=== PATIENT | female | born 1995 | race Caucasian/White ===

== ENCOUNTER 2017-07-03 23:38 | Emergency (ER) | payer BC ==
[~2017-07-03] VITALS: Ht 167.6 cm; Wt 59.2 kg
[~2017-07-03 23:38] MED LIST: ALBUTEROL SULF8.5 GM IH; ATARAX,VISTARIL25 MG PO; ATARAX10 MG PO; BENADRYL25 MG PO; BENADRYL50 MG PO; BUSPAR15 MG PO; BUSPAR7.5 MG PO; BUSPIRONE HCL15 MG PO; DIVALPROEX SOD250 MG PO; ESCITALOPRAM OX10 MG PO; LATUDA20 MG PO; LATUDA40 MG PO; MOTRIN600 MG PO; PEPCID20 MG PO; PREDNISONE50 MG PO; SEROQUEL50 MG PO; STRATTERA25 MG PO
[2017-07-04] MEDS ORDERED: SEROQUEL XR400 MG PO (00:49)
[2017-07-04] MEDS ORDERED: BUSPAR10 MG PO (00:50)
[2017-07-04 01:11] LABS: HEMATOCRIT 41.9 % (36.0-46.0); MCH 27.8 PG (29.0-34.0); MCHC 33.4 G/DL (30.0-36.0); MCV 83.3 FL (83-99); MEAN PLAT.VOLUME 9.9 uM^3 (9.5-12.4); PLATELET COUNT 239 K/uL (156-360); RBC DIS.WIDTH-SD 39.5 % (39-53); RED BLOOD COUNT 5.03 M/uL (3.80-5.20); WHITE BLOOD COUNT 7.6 K/uL (4.1-10.2)
[2017-07-04 01:28] LABS: CHLORIDE 113 mEq/L (99-109); POTASSIUM 3.5 mEq/L (3.7-5.4); SODIUM 143 mEq/L (136-147)
[2017-07-04 01:30] LABS: GLUCOSE 86 mg/dL (70-99)
[2017-07-04 01:31] LABS: ANION GAP 11 MEQ/L (2-14)
[2017-07-04 01:33] LABS: SERUM ETHYL ALCOHOL 166 mg/dL
[2017-07-04 01:34] LABS: GFR ESTIMATE (CALCULATED) > 59 mL/min/
[2017-07-04 01:35] LABS: UREA NITROGEN (BUN) 8 mg/dL (9-23)
[2017-07-04 01:42] LABS: QUANTITATIVE HCG < 4.0 MIU/ML
[2017-07-04 02:27] LABS: AMPHETAMINE NEGATIVE (500 ng/mL); BARBITURATES NEGATIVE (200 ng/mL); BENZODIAZEPINES NEGATIVE (150 ng/mL); COCAINE NEGATIVE (150 ng/mL); INTERNAL CONTROLS VALID? YES; METHADONE NEGATIVE (200 ng/mL); METHAMPHETAMINE NEGATIVE (500 ng/mL); OPIATES (MORPHINE) NEGATIVE (100 ng/mL); OXYCODONE NEGATIVE (100 ng/mL); PHENCYCLIDINE NEGATIVE (25 ng/mL); PROPOXYPHENE NEGATIVE (300 ng/mL); THC CANNABINOIDS NEGATIVE (50 ng/mL); TRICYCLIC ANTIDEPRESSANTS PRESUMPTIVE POSITIVE (300 ng/mL)
[2017-07-04 04:45] VITALS: BP 98/62
== END 2017-07-04 04:53 | disposition home or self-care (01) ==
LOC: EME → EDBD 23:38 → EME 23:38
PROVIDERS: Emergency Medicine
DX: F10.129 Alcohol abuse with intoxication, unspecified (principal); Y90.6 Blood alcohol level of 120-199 mg/100 ml; J45.909 Unspecified asthma, uncomplicated
CPT/HCPCS: 80048; 84702; 85027; 90839; 99281; 99285; G0480; J1630; J2060

== ENCOUNTER 2017-11-17 03:10 | Inpatient (IN) | payer BC ==
[~2017-11-17] VITALS: Ht 160 cm; Wt 59.9 kg
[~2017-11-17 03:10] MED LIST changes: +BUSPAR10 MG PO; +SEROQUEL XR400 MG PO
[2017-11-17 05:00] LABS: BASOPHIL (%) 0.8 % (0-1); BASOPHIL COUNT 0.1 K/uL (0-0.1); EOSINOPHIL (%) 1.6 % (0-5); EOSINOPHIL COUNT 0.1 K/uL (0-0.3); HEMATOCRIT 41.5 % (36.0-46.0); HEMOGLOBIN 14.3 G/DL (11.9-15.5); IMMATURE GRANULOCYTE (%) 0.8 % (0.0-0.7); LYMPHOCYTE (%) 29.2 % (15-42); LYMPHOCYTE COUNT 2.4 K/uL (1.0-2.8); MCH 29.4 PG (29.0-34.0); MCHC 34.5 G/DL (30.0-36.0); MCV 85.2 FL (83-99); MONOCYTE (%) 4.5 % (3-12); MONOCYTE COUNT 0.4 K/uL (0-0.8); NEUTROPHIL (%) 63.1 % (45-76); NEUTROPHIL COUNT 5.2 K/uL (1.8-6.4); PLATELET COUNT 245 K/uL (156-360); RBC DIS.WIDTH-CV 12.1 % (11.8-14.6); RBC DIS.WIDTH-SD 37.4 % (39-53); RED BLOOD COUNT 4.87 M/uL (3.80-5.20); WHITE BLOOD COUNT 8.2 K/uL (4.1-10.2)
[2017-11-17 05:22] LABS: CHLORIDE 110 mEq/L (99-109); POTASSIUM 3.4 mEq/L (3.7-5.4); SODIUM 143 mEq/L (136-147)
[2017-11-17 05:24] LABS: GLUCOSE 88 mg/dL (70-99)
[2017-11-17 05:27] LABS: SERUM ETHYL ALCOHOL 119 mg/dL
[2017-11-17 05:28] LABS: CREATININE 0.7 mg/dL (0.6-1.3); GFR ESTIMATE (CALCULATED) > 59 mL/min/
[2017-11-17 05:29] LABS: UREA NITROGEN (BUN) 12 mg/dL (9-23)
[2017-11-17 09:00] LABS: QUANTITATIVE HCG < 4.0 MIU/ML
[2017-11-17 12:45] LABS: AMPHETAMINE NEGATIVE (500 ng/mL); BARBITURATES NEGATIVE (200 ng/mL); BENZODIAZEPINES PRESUMPTIVE POSITIVE (150 ng/mL); BUPRENORPHINE NEGATIVE (10 ng/mL); COCAINE PRESUMPTIVE POSITIVE (150 ng/mL); METHADONE NEGATIVE (200 ng/mL); METHAMPHETAMINE NEGATIVE (500 ng/mL); OPIATES (MORPHINE) NEGATIVE (100 ng/mL); OXYCODONE NEGATIVE (100 ng/mL); PHENCYCLIDINE NEGATIVE (25 ng/mL); PROPOXYPHENE NEGATIVE (300 ng/mL); THC CANNABINOIDS NEGATIVE (50 ng/mL); TRICYCLIC ANTIDEPRESSANTS PRESUMPTIVE POSITIVE (300 ng/mL)
[2017-11-17 14:10] VITALS: BP 124/79
[2017-11-17 15:12] LABS: BENZODIAZEPINES, URINE SCREEN Negative (200 ng/mL)
[2017-11-18 07:07] VITALS: BP 108/67
[2017-11-18 15:27] VITALS: BP 109/68
[2017-11-19 07:38] VITALS: BP 114/60
[2017-11-19 15:14] VITALS: BP 108/73
[2017-11-20 07:33] VITALS: BP 112/66
[2017-11-20 15:16] VITALS: BP 119/78
[2017-11-21 01:10] VITALS: BP 96/50
[2017-11-21 07:33] VITALS: BP 114/65
[2017-11-21] MEDS ORDERED: METHYLPHENIDATE5 MG PO (09:21)
[2017-11-21] MEDS ORDERED: VENTOLIN HFA18 GM IH (09:21)
[2017-11-21] MEDS ORDERED: BUSPAR10 MG PO (09:21)
[2017-11-21] MEDS ORDERED: SEROQUEL XR400 MG PO (09:21)
[2017-11-21] MEDS ORDERED: PRAZOSIN HCL1 MG PO (09:21)
== END 2017-11-21 14:39 | disposition home or self-care (01) | DRG 885 ==
LOC: EME → EDBD 03:10 → EME 03:10 → EDOF 13:29 → 1WEST 13:29 → EDOF 13:49 → ENRESERV 13:58 → 1WEST 13:59
PROVIDERS: Emergency Medicine
DX: F33.1 Major depressive disorder, recurrent, moderate (principal); R45.851 Suicidal ideations; F10.229 Alcohol dependence with intoxication, unspecified; Y90.5 Blood alcohol level of 100-119 mg/100 ml; F14.10 Cocaine abuse, uncomplicated; F43.10 Post-traumatic stress disorder, unspecified; F60.3 Borderline personality disorder; Z91.5 Personal history of self-harm; F90.9 Attention-deficit hyperactivity disorder, unspecified type; J45.909 Unspecified asthma, uncomplicated; G47.9 Sleep disorder, unspecified; Z81.8 Family history of other mental and behavioral disorders
CPT/HCPCS: 80048; 84702; 84999; 85025; 90837; 97150 GO; 97165 GO; 99281; 99285; G0480; J1630; J2060

== ENCOUNTER 2018-06-22 20:14 | Emergency (ER) | payer BC ==
[~2018-06-22] VITALS: Ht 162.6 cm; Wt 53.0 kg
[~2018-06-22 20:14] MED LIST changes: +METHYLPHENIDATE5 MG PO; +PRAZOSIN HCL1 MG PO; +VENTOLIN HFA18 GM IH
[2018-06-22 22:06] LABS: HEMATOCRIT 42.4 % (36.0-46.0); HEMOGLOBIN 14.5 G/DL (11.9-15.5); MCH 27.8 PG (29.0-34.0); MCHC 34.2 G/DL (30.0-36.0); MCV 81.2 FL (83-99); PLATELET COUNT 218 K/uL (156-360); RBC DIS.WIDTH-CV 12.7 % (11.8-14.6); RED BLOOD COUNT 5.22 M/uL (3.80-5.20); WHITE BLOOD COUNT 9.5 K/uL (4.1-10.2)
[2018-06-22 22:15] LABS: CHLORIDE 106 mEq/L (99-109); POTASSIUM 4.3 mEq/L (3.7-5.4); SODIUM 140 mEq/L (136-147)
[2018-06-22 22:17] LABS: GLUCOSE 72 mg/dL (70-99)
[2018-06-22 22:20] LABS: SERUM ETHYL ALCOHOL < 10 mg/dL
[2018-06-22 22:21] LABS: GFR ESTIMATE (CALCULATED) > 59 mL/min/
[2018-06-22 22:21] LABS: AMPHETAMINE NEGATIVE (500 ng/mL); BARBITURATES NEGATIVE (200 ng/mL); BENZODIAZEPINES NEGATIVE (150 ng/mL); BUPRENORPHINE NEGATIVE (10 ng/mL); COCAINE NEGATIVE (150 ng/mL); METHADONE NEGATIVE (200 ng/mL); METHAMPHETAMINE NEGATIVE (500 ng/mL); OPIATES (MORPHINE) NEGATIVE (100 ng/mL); OXYCODONE NEGATIVE (100 ng/mL); PHENCYCLIDINE NEGATIVE (25 ng/mL); PROPOXYPHENE NEGATIVE (300 ng/mL); THC CANNABINOIDS PRESUMPTIVE POSITIVE (50 ng/mL); TRICYCLIC ANTIDEPRESSANTS NEGATIVE (300 ng/mL)
[2018-06-22 22:23] LABS: UREA NITROGEN (BUN) 22 mg/dL (9-23)
[2018-06-22 22:24] LABS: SALICYLATE < 5.0 MG/DL (15-30)
[2018-06-22 22:25] LABS: ACETAMINOPHEN (TYLENOL) < 10 mcg/mL (10-30)
[2018-06-23 12:27] VITALS: BP 119/76
== END 2018-06-23 12:28 ==
LOC: EME 20:14
PROVIDERS: Emergency Medicine
DX: F33.3 Major depressive disorder, recurrent, severe with psychotic symptoms (principal); F31.9 Bipolar disorder, unspecified; R45.851 Suicidal ideations; F41.9 Anxiety disorder, unspecified
CPT/HCPCS: 80048; 84999; 85027; 90837; 99281; 99285; G0480